=== PATIENT | female | born 1960 | race African-American/Black ===

== ENCOUNTER 2022-06-30 01:31 | Inpatient (IN) | payer OTHER, MEDICAID ==
[~2022-06-30] VITALS: Ht 162.6 cm; Wt 79.4 kg
[2022-06-30] MEDS ORDERED: FUROSEMIDE 40MG/4ML VIAL IV ONE (01:45)
[2022-06-30] MEDS ORDERED: NITROGLYCERIN OINT 1GM/INCH UDPKT TD ONE (01:45)
[2022-06-30 02:10] LABS: HEMATOCRIT. 42.3 % (36.0-48.0); MEAN CORPUSCULAR HEMOGLOBIN 29.9 pg (28.0-32.0); MEAN CORPUSCULAR VOLUME 90.2 fL (81.0-99.0); MEAN PLATELET VOLUME 8.7 fl (7.4-10.4); PLATELET 395 x1000/uL (130-400); RED BLOOD CELL COUNT 4.69 mill/uL (4.2-5.4); RED CELL DISTRIBUTION WIDTH 14.7 % (11.6-14.6)
[2022-06-30 02:19] LABS: CHLORIDE 103 mEq/L (98-107)
[2022-06-30 05:28] LABS: PLATELET ESTIMATE NORMAL
[2022-06-30] MEDS ORDERED: GUAIFENESIN 200MG/10ML SUGAR FREE UDC PO PRN (09:15)
[2022-06-30] MEDS ORDERED: IPRATROPIUM/ALBUTEROL 0.5-3(2.5)MG/3ML NEB HHN PRN (09:15)
[2022-06-30] MEDS ORDERED: CLONIDINE 0.1MG TABLET PO PRN (09:15)
[2022-06-30] MEDS ORDERED: ACETAMINOPHEN 325MG TABLET PO PRN ×2 (09:15)
[2022-06-30] MEDS ORDERED: MAGNESIUM/ALUMINUM HYDROXIDE/SIMETHICONE 30ML UDC PO PRN (09:15)
[2022-06-30] MEDS ORDERED: ONDANSETRON HCL 4MG/2ML INJ IV PRN (09:15)
[2022-06-30] MEDS ORDERED: DEXTROSE 50% WATER 50ML SYRINGE IV PRN (09:15)
[2022-06-30] MEDS ORDERED: NALOXONE HCL 0.4MG/ML VIAL IV PRN (09:45)
[2022-06-30] MEDS: AMLODIPINE 2.5MG TABLET PO SCH ×2 (10:00→21:13)
[2022-06-30] MEDS ORDERED: FUROSEMIDE 40MG/4ML VIAL IVP SCH (10:00)
[2022-06-30] MEDS: BLOOD SUGAR DIAGNOSTIC STRIP TEST SCH ×4 (10:00→21:10)
[2022-06-30] MEDS: ENOXAPARIN 40MG/0.4ML SYR SUBCUT SCH (10:13)
[2022-06-30] MEDS: POTASSIUM CHLORIDE 20MEQ TABLET SR PO SCH (10:14)
[2022-06-30] MEDS: INSULIN LISPRO 100 UNITS/ML SUBCUT SCH ×4 (12:08→21:17)
[2022-06-30] MEDS: SODIUM CHLORIDE 0.9% INJ 3ML FLUSH IVF SCH ×2 (14:22→21:15)
[2022-06-30 17:00] VITALS: BP 113/61
[2022-06-30] MEDS: METFORMIN HCL 500MG TABLET PO SCH (17:50)
[2022-06-30 19:56] VITALS: BP 113/61
[2022-06-30 20:00] VITALS: BP 123/72
[2022-06-30] MEDS ORDERED: METF500S7 PO (20:23)
[2022-06-30] MEDS ORDERED: ZOLPIDEM TARTRATE 5MG TABLET PO PRN (21:00)
[2022-06-30] MEDS: FUROSEMIDE 40MG/4ML VIAL IVP SCH (21:13)
[2022-07-01] VITALS: BP 91/49
[2022-07-01 04:00] VITALS: BP 117/75
[2022-07-01] MEDS: SODIUM CHLORIDE 0.9% INJ 3ML FLUSH IVF SCH ×3 (06:00→21:35)
[2022-07-01] MEDS: BLOOD SUGAR DIAGNOSTIC STRIP TEST SCH ×4 (06:26→21:16)
[2022-07-01 07:31] LABS: BASOPHILS % 1.2 % (0.0-2.0); EOSINOPHILS % 3.5 % (0.0-5.0); HEMATOCRIT. 45.2 % (36.0-48.0); HEMOGLOBIN. 15.3 g/dL (12.0-16.0); MEAN CORPUSCULAR HEMOGLOBIN 30.4 pg (28.0-32.0); MEAN CORPUSCULAR VOLUME 89.9 fL (81.0-99.0); MEAN PLATELET VOLUME 8.4 fl (7.4-10.4); MONOCYTES % 10.3 % (2.0-8.0); PLATELET 407 x1000/uL (130-400); RED BLOOD CELL COUNT 5.03 mill/uL (4.2-5.4); RED CELL DISTRIBUTION WIDTH 14.8 % (11.6-14.6)
[2022-07-01 08:00] VITALS: BP 120/73
[2022-07-01] MEDS: FUROSEMIDE 40MG/4ML VIAL IVP SCH ×2 (08:26→18:48)
[2022-07-01] MEDS: POTASSIUM CHLORIDE 20MEQ TABLET SR PO SCH (08:27)
[2022-07-01] MEDS: METFORMIN HCL 500MG TABLET PO SCH ×2 (08:27→18:48)
[2022-07-01] MEDS: INSULIN LISPRO 100 UNITS/ML SUBCUT SCH ×4 (08:29→21:36)
[2022-07-01] MEDS: AMLODIPINE 2.5MG TABLET PO SCH (08:34)
[2022-07-01] MEDS ORDERED: SPIRONOLACTONE 25MG TABLET PO SCH (09:00)
[2022-07-01 09:22] LABS: CHLORIDE 98 mEq/L (98-107)
[2022-07-01 12:00] VITALS: BP 109/66
[2022-07-01] MEDS: ENOXAPARIN 40MG/0.4ML SYR SUBCUT SCH (13:42)
[2022-07-01 16:00] VITALS: BP 120/62
[2022-07-01] MEDS ORDERED: LOSARTAN POTASSIUM 25 MG TABLET PO SCH (16:30)
[2022-07-01 20:00] VITALS: BP 102/45
[2022-07-01] MEDS ORDERED: METOPROLOL TARTRATE 25MG TABLET PO SCH (21:00)
[2022-07-01] MEDS ORDERED: INSULIN GLARGINE 100 UNITS/ML SUBCUT SCH (22:00)
[2022-07-02] VITALS: BP 113/59
[2022-07-02 04:00] VITALS: BP 102/55
[2022-07-02] MEDS: SODIUM CHLORIDE 0.9% INJ 3ML FLUSH IVF SCH (06:00)
[2022-07-02] MEDS: BLOOD SUGAR DIAGNOSTIC STRIP TEST SCH (06:23)
[2022-07-02] MEDS: FUROSEMIDE 40MG/4ML VIAL IVP SCH (06:23)
[2022-07-02] MEDS ORDERED: ENOXAPARIN 30MG/0.3ML SYR SUBCUT SCH (09:00)
== END 2022-07-02 07:28 | disposition left against medical advice (07) | DRG 291 ==
LOC: ER 01:31 → 6WST 04:43 → ENRESERV 15:34
PROVIDERS: ADMIT Internal Medicine; ATTEND Internal Medicine
PROC: 5A09357 Assistance with Respiratory Ventilation, Less than 24 Consecutive Hours, Continuous Positive Airway Pressure (ICD-10-PCS; principal; 2022-06-30)
DX: I11.0 Hypertensive heart disease with heart failure (principal); I50.23 Acute on chronic systolic (congestive) heart failure; J96.01 Acute respiratory failure with hypoxia; I49.3 Ventricular premature depolarization; J44.9 Chronic obstructive pulmonary disease, unspecified; M06.9 Rheumatoid arthritis, unspecified; E66.9 Obesity, unspecified; Z20.822 Contact with and (suspected) exposure to COVID-19; Z53.29 Procedure and treatment not carried out because of patient's decision for other reasons; E11.65 Type 2 diabetes mellitus with hyperglycemia; F17.210 Nicotine dependence, cigarettes, uncomplicated; I25.2 Old myocardial infarction; Z83.3 Family history of diabetes mellitus; Z79.82 Long term (current) use of aspirin; Z91.14 Patient's other noncompliance with medication regimen; Z88.0 Allergy status to penicillin; Z71.6 Tobacco abuse counseling; Z68.30 Body mass index [BMI] 30.0-30.9, adult
CPT/HCPCS: 36415; 71045; 80048; 80053; 82962; 83036; 83735; 83880; 84484; 85025; 87426; 93005; 93306; 93970; 99291; C9803; J1650; J1815; J1940

== ENCOUNTER 2022-11-27 18:47 | Emergency (ER) | payer OTHER, MEDICAID ==
[~2022-11-27] VITALS: Ht 165.1 cm; Wt 77.0 kg
[~2022-11-27 18:47] MED LIST: METF500S9 PO
[2022-11-27 18:54] VITALS: BP 118/73
[2022-11-27] MEDS ORDERED: IBUPROFEN 600MG TABLET PO ONE (19:45)
[2022-11-27] MEDS ORDERED: IBUP-2029 MT (19:47)
== END 2022-11-27 20:20 | disposition home or self-care (01) ==
LOC: ER 18:47
DX: S09.8XXA Other specified injuries of head, initial encounter (principal); I11.0 Hypertensive heart disease with heart failure; I50.9 Heart failure, unspecified; E11.9 Type 2 diabetes mellitus without complications; J44.9 Chronic obstructive pulmonary disease, unspecified; M19.90 Unspecified osteoarthritis, unspecified site; Y08.89XA Assault by other specified means, initial encounter; Y93.9 Activity, unspecified; Y92.9 Unspecified place or not applicable; Z88.0 Allergy status to penicillin
CPT/HCPCS: 99284